=== PATIENT | male | born 1980 | race Caucasian/White ===

== ENCOUNTER → 2018-05-26 | Outpatient (CLI) | payer OTHER ==
--- NOTE | 2018-05-26 15:16 | US ---
EXAMINATION TYPE: US kidneys/renal and bladder DATE OF EXAM: 05/26/2018 COMPARISON: CT 2013. CLINICAL HISTORY: N20.0 Kidney Stones. Pt states frequent urination with pelvic and left flank pain EXAM MEASUREMENTS: Right Kidney: 11.8 x 5.8 x 6.1 cm Left Kidney: 11.9 x 6.0 x 6.2 cm Right Kidney: Appeared wnl Left Kidney: Appeared wnl Bladder: wnl Bilateral Jets seen: Yes There is no evidence for hydronephrosis at this point in time. No nephrolithiasis is seen. No rustam s are identified on images saved. The urinary bladder is anechoic. Bilateral ureteral jets are seen . IMPRESSION: Unremarkable study.
== END | disposition home or self-care (01) ==
LOC: RADUSWWP 14:45
PROVIDERS: ATTEND Family Medicine
DX: N20.0 Calculus of kidney (principal)
CPT/HCPCS: 76770

== ENCOUNTER → 2018-08-14 | Outpatient (CLI) | payer OTHER ==
--- NOTE | 2018-08-14 20:58 | CT ---
EXAMINATION TYPE: CT abdomen pelvis w con DATE OF EXAM: 08/14/2018 COMPARISON: 04/04/2014 HISTORY: Nausea and pain for [address] DLP: 3684 mGycm Automated exposure control for dose reduction was used. CONTRAST: CT scan of the abdomen pelvis is performed with IV Contrast, patient injected with 100 mL of Isovue 3 00. FINDINGS- LUNG BASES- No significant abnormality is appreciated. LIVER/GB- No gross abnormality is appreciated. PANCREAS- No gross abnormality is seen. SPLEEN- No gross abnormality is seen. ADRENALS- No gross abnormality is seen. KIDNEYS/BLADDER-there is a 2 mm lower pole right renal calculus with no evidence of hydronephrosis.. BOWEL-bowel gas pattern nonspecific.. Normal appendix. Mild diverticulosis seen. LYMPH NODES- No greater than 1cm abdominal or pelvic lymph nodes areappreciated. OSSEOUS STRUCTURES-mild hypertrophic change of the spine.. OTHER- tiny periumbilical hernia noted. Aorta of normal caliber. No evidence of aneurysm. No free fl uid or free air. Fat-containing inguinal hernias incidentally. IMPRESSION- 1. Nonobstructing 2 mm right renal calculus.
== END | disposition home or self-care (01) ==
LOC: RADCTMAIN 14:24
PROVIDERS: ATTEND Family Medicine
DX: N20.0 Calculus of kidney (principal)
CPT/HCPCS: 74177; Q9967

== ENCOUNTER 2018-09-21 09:16 | Day surgery (SDC) | payer OTHER ==
[2018-09-17 09:13] VITALS: BMI 41.2
[~2018-09-21 09:16] MED LIST: LACTATED RINGERS 1,000 ML IV SCH
[2018-09-21 10:43] VITALS: RESP 16; TEMP 97.4
[2018-09-21] MEDS ORDERED: LIDOCAINE 1% 20 ML VIAL (10MG/ML) FOR IV START INTRADERMA ONE (10:43)
[2018-09-21] MEDS ORDERED: GLYCOPYRROLATE 0.2 MG/ML 2 ML VIAL ONE (12:11)
[2018-09-21] MEDS ORDERED: LIDOCAINE 1% INJ 10MG/ML (20 ML MDV) ONE (12:11)
[2018-09-21] MEDS ORDERED: PROPOFOL 10 MG/ML 20 ML VIAL IV ONE (12:11)
--- NOTE | 2018-09-21 12:42 | P.PCN ---
Date of Procedure: 09/21/18 Description of Procedure: BRIEF HISTORY: Patient is a 37-year-old, pleasant, male patient who was initially seen in the outpatient setting for complaints of nausea, retching and vomiting. The patient has been tried on H2 antagonist therapy, PPI therapy and antiemetics with only animal improvement in his symptoms. PROCEDURE PERFORMED: Esophagogastroduodenoscopy with biopsy. PREOPERATIVE DIAGNOSIS: Nausea and vomiting. ESTIMATED BLOOD LOSS: Minimal. IV sedation per anesthesia. PROCEDURE: After informed consent was obtained, the patient was brought into the endoscopy unit. IV sedation was administered by Anesthesia under continuous monitoring. Initially the Olympus GIF-190 video endoscope was inserted into the mouth. Esophagus intubated without any difficulty. It was gradually advanced into the stomach and duodenum and carefully examined. The bulb and the second part of the duodenum appeared normal. The scope at this time was withdrawn to the stomach, adequately insufflated with air, and upon careful examination, mucosa of the antrum, body, cardia and the fundus appeared normal. The scope was then withdrawn into the esophagus. The GE junction was located at 39 cm from the incisors. The esophagus appeared normal. There were no erosions or ulcerations seen and the patient tolerated the procedure well. IMPRESSION: 1. Mild gastritis antrum and body, biopsied. 2. Duodenal biopsies. RECOMMENDATIONS: The findings of this examination were discussed with the patient and his mother. Await pathology from biopsies. Recommend follow-up in the GI clinic as previously scheduled. Further recommendations pending findings of pathology.
[2018-09-21 12:58] VITALS: BP 120/75; PULSE 61
== END 2018-09-21 13:19 | disposition home or self-care (01) ==
LOC: ORWHC2ENDO 09:16
PROVIDERS: ATTEND Internal Medicine
DX: K29.50 Unspecified chronic gastritis without bleeding (principal); Z79.899 Other long term (current) drug therapy; K21.9 Gastro-esophageal reflux disease without esophagitis
CPT/HCPCS: 88305; 43239; J2001; J2704

== ENCOUNTER 2018-10-18 07:24 | Emergency (ER) | payer OTHER ==
[2018-10-18 07:30] VITALS: RESP 18
[2018-10-18] MEDS ORDERED: SODIUM CHLORIDE 0.9% 1,000 ML IV STA ×2 (07:37)
[2018-10-18] MEDS ORDERED: KETOROLAC 30 MG/ML 1 ML VIAL IVP STA (07:38)
--- NOTE | 2018-10-18 07:52 | ED ---
Abdominal Pain HPI - General Chief Complaint: Abdominal Pain Stated Complaint: LRQ PAIN Time Seen by Provider: 10/18/18 07:37 Source: patient, RN notes reviewed Mode of arrival: ambulatory - History of Present Illness Initial Comments: This is a 37-year-old male with a benign history other than about a three-month history of daily nausea with dry heaves and also a history of a kidney stone was found on a CAT scan incidentally who is here today with complaints of severe right-sided flank pain. He states he had severe pain about 8/10 that started this morning he get worse after moving his right side while he was in bed. He has had some dry heaves associated with this he denies any fevers chills sweats dysuria hematuria change in bowel habits. No trauma. No abdominal surgeries. He does state that he is in the process of being worked up for the nausea and dry heaves by Dr. Alva. Additionally states her last couple ones he's been waking up at 5 AM the morning with the need to urinate which is new for him he's never had problems like this no diagnosed issues of prostatism. No other modifying factors at this time he states the pain is currently about 2/10. MD Complaint: flank pain - Related Data Home Medications Medication Instructions Recorded Confirmed Cetirizine HCl [Zyrtec] 10 mg PO BID 10/18/18 10/18/18 Omeprazole 40 mg PO DAILY 10/18/18 10/18/18 Ondansetron [Zofran ODT] 4 mg SL Q8H PRN 10/18/18 10/18/18 Ranitidine HCl [Zantac] 150 mg PO BID 10/18/18 10/18/18 Previous Rx's Medication Instructions Recorded Ketorolac [Toradol] 10 mg PO Q6HR #20 tab 10/18/18 Tamsulosin [Flomax] 0.4 mg PO DAILY #7 cap 10/18/18 Allergies Allergy/AdvReac Type Severity Reaction Status Date / Time No Known Allergies Allergy Verified 10/18/18 07:46 Review of Systems ROS Statement: Those systems with pertinent positive or pertinent negative responses have been documented in the HPI. ROS Other: All systems not noted in ROS Statement are negative. Past Medical History Past Medical History: Sleep Apnea/CPAP/BIPAP Additional Past Medical History / Comment(s): nausea, "dry heaves" History of Any Multi-Drug Resistant Organisms: None Reported Past Surgical History: Orthopedic Surgery Additional Past Surgical History / Comment(s): left wrist sx with screw, now removed Past Anesthesia/Blood Transfusion Reactions: No Reported Reaction Past Psychological History: No Psychological Hx Reported Smoking Status: Never smoker Past Alcohol Use History: Occasional Past Drug Use History: None Reported General Exam - General Exam Comments Initial Comments: This is a well-developed well-nourished awake alert oriented 3 male General appearance: alert, in no apparent distress Head exam: Present: atraumatic, normocephalic, normal inspection Eye exam: Present: normal appearance, PERRL, EOMI. Absent: scleral icterus, conjunctival injection, periorbital swelling ENT exam: Present: normal exam, mucous membranes moist Neck exam: Present: normal inspection. Absent: tenderness, meningismus, lymphadenopathy Respiratory exam: Present: normal lung sounds bilaterally. Absent: respiratory distress, wheezes, rales, rhonchi, stridor Cardiovascular Exam: Present: regular rate, normal rhythm, normal heart sounds. Absent: systolic murmur, diastolic murmur, rubs, gallop, clicks GI/Abdominal exam: Present: soft, normal bowel sounds. Absent: distended, tenderness, guarding, rebound, rigid Rectal exam: Present: deferred exam: Present: normal inspection, circumcision Extremities exam: Present: normal inspection, full ROM, normal capillary refill. Absent: tenderness, pedal edema, joint swelling, calf tenderness Back exam: Present: normal inspection Neurological exam: Present: alert, oriented X3, CN II-XII intact Psychiatric exam: Present: normal affect, normal mood Skin exam: Present: warm, dry, intact, normal color. Absent: rash Course Vital Signs 10/18/18 10/18/18 07:26 09:35 Temperature 98.4 F 97.8 F Pulse Rate 72 68 Respiratory 18 18 Rate Blood Pressure 128/81 127/94 O2 Sat by Pulse 98 97 Oximetry Medical Decision Making - Medical Decision Making The patient's been almost pain-free and later pain-free during his visit here. He does demonstrate evidence of a marked amount of red cells in the urine is HERE report shows evidence of a 2 mm stone right kidney. The clinical presentation at this time is consistent with renal colic and a ureteral stone. The patient will be placed on appropriate treatment for [facility]. Is unclear whether this represents the cause of his underlying persistent daily nausea or not. - Lab Data Result diagrams: 10/18/18 08:09 10/18/18 08:09 Lab Results 10/18/18 10/18/18 10/18/18 Range/Units 08:09 08:09 09:00 WBC 6.4 (3.8-10.6) k/uL RBC 4.95 (4.30-5.90) m/uL Hgb 14.4 (13.0-17.5) gm/dL Hct 43.1 (39.0-53.0) % MCV 87.3 (80.0-100.0) fL MCH 29.1 (25.0-35.0) pg MCHC 33.4 (31.0-37.0) g/dL RDW 16.2 H (11.5-15.5) % Plt Count 232 (150-450) k/uL Neutrophils % 66 % Lymphocytes % 25 % Monocytes % 5 % Eosinophils % 3 % Basophils % 1 % Neutrophils # 4.2 (1.3-7.7) k/uL Lymphocytes # 1.6 (1.0-4.8) k/uL Monocytes # 0.3 (0-1.0) k/uL Eosinophils # 0.2 (0-0.7) k/uL Basophils # 0.0 (0-0.2) k/uL Anisocytosis Slight Sodium 142 (137-145) mmol/L Potassium 4.3 (3.5-5.1) mmol/L Chloride 108 H (98-107) mmol/L Carbon Dioxide 27 (22-30) mmol/L Anion Gap 7 mmol/L BUN 18 (9-20) mg/dL Creatinine 1.16 (0.66-1.25) mg/dL Est GFR (CKD-EPI)AfAm >90 (>60 ml/min/1.73 sqM) Est GFR (CKD-EPI)NonAf 81 (>60 ml/min/1.73 sqM) Glucose 116 H (74-99) mg/dL Calcium 9.3 (8.4-10.2) mg/dL Total Bilirubin 0.5 (0.2-1.3) mg/dL AST 31 (17-59) U/L ALT 34 (21-72) U/L Alkaline Phosphatase 62 (38-126) U/L Total Protein 7.1 (6.3-8.2) g/dL Albumin 4.4 (3.5-5.0) g/dL Amylase 62 (30-110) U/L Lipase 48 (23-300) U/L Urine Color Yellow Urine Appearance Clear (Clear) Urine pH 6.0 (5.0-8.0) Ur Specific [place] 1.018 (1.001-1.035) Urine Protein Trace H (Negative) Urine Glucose (UA) Negative (Negative) Urine Ketones Negative (Negative) Urine Blood Moderate H (Negative) Urine Nitrite Negative (Negative) Urine Bilirubin Negative (Negative) Urine Urobilinogen <2.0 (<2.0) mg/dL Ur Leukocyte Esterase Negative (Negative) Urine RBC >182 H (0-5) /hpf Urine WBC 2 (0-5) /hpf Urine Mucus Rare H (None) /hpf - Radiology Data Radiology results: report reviewed (I did review the imaging and report no acute findings), image reviewed Disposition Clinical Impression: Renal colic on right side, Hematuria, Ureterolithiasis Disposition: HOME SELF-CARE Condition: Good Instructions (If sedation given, give patient instructions): Kidney Stones (ED), Flank Pain (ED), How to Strain Your Urine (ED), Renal Colic (ED) Prescriptions: Tamsulosin [Flomax] 0.4 mg PO DAILY #7 cap Ketorolac [Toradol] 10 mg PO Q6HR #20 tab Is patient prescribed a controlled substance at d/c from ED?: No Referrals: Roddy Ragsdale MD [Primary Care Provider] - 1-2 days Meng Sue MD [STAFF PHYSICIAN] - 1-2 days
[2018-10-18 08:27] LABS: Anisocytosis Slight; Basophils % (A) 1 %; Eosinophils # (A) 0.2 k/uL (0-0.7); Eosinophils % (A) 3 %; HCT 43.1 % (39.0-53.0); HGB 14.4 gm/dL (13.0-17.5); Lymphocytes # (A) 1.6 k/uL (1.0-4.8); Lymphocytes % (A) 25 %; MCH 29.1 pg (25.0-35.0); MCHC 33.4 g/dL (31.0-37.0); MCV 87.3 fL (80.0-100.0); Mean Platelet Volume 7.9; Monocytes # (A) 0.3 k/uL (0-1.0); Monocytes % (A) 5 %; Neutrophils # (A) 4.2 k/uL (1.3-7.7); Neutrophils % (A) 66 %; Platelet Count 232 k/uL (150-450); RBC 4.95 m/uL (4.30-5.90); RDW 16.2 % (11.5-15.5); WBC 6.4 k/uL (3.8-10.6)
[2018-10-18 08:36] LABS: ALT 34 U/L (21-72); AST 31 U/L (17-59); African American GFR (CKD) >90 (>60 ml/min/1.73 sqM); Albumin 4.4 g/dL (3.5-5.0); Alkaline Phosphatase 62 U/L (38-126); Amylase 62 U/L (30-110); Anion Gap 7 mmol/L; Blood Urea Nitrogen 18 mg/dL (9-20); Calcium 9.3 mg/dL (8.4-10.2); Carbon Dioxide 27 mmol/L (22-30); Chloride 108 mmol/L (98-107); Glucose 116 mg/dL (74-99); Lipase 48 U/L (23-300); Potassium 4.3 mmol/L (3.5-5.1); Sodium 142 mmol/L (137-145); Total Bilirubin 0.5 mg/dL (0.2-1.3); Total Protein 7.1 g/dL (6.3-8.2)
--- NOTE | 2018-10-18 08:48 | XR ---
EXAMINATION TYPE: XR KUB , 2 VIEWS DATE OF EXAM ORDERED: 10/18/2018 HISTORY: Abdominal pain, nausea and vomiting. COMPARISON: None. FINDINGS: The lung bases are clear. Within the abdomen, the abdominal gas pattern is normal. There is no evidence of obstruction or free air. No unusual calcifications are identified. IMPRESSION: NO ACUTE INTRA-ABDOMINAL ABNORMALITY.
[2018-10-18 09:21] LABS: Appearance,Urine Clear (Clear); Bilirubin,Urine Negative (Negative); Blood,Urine Moderate (Negative); Color,Urine Yellow; Glucose,Urine (UA) Negative (Negative); Ketones,Urine Negative (Negative); Leukocyte Esterase,Urine Negative (Negative); Mucus,Urine Rare /hpf; Nitrite,Urine Negative (Negative); Protein,Urine Trace (Negative); RBC,Urine >182 /hpf (0-5); Specific Gravity,Urine 1.018 (1.001-1.035); Urobilinogen,Urine <2.0 mg/dL (<2.0); WBC,Urine 2 /hpf (0-5)
[2018-10-18 09:37] VITALS: BP 127/94; PULSE 68; TEMP 97.8
[2018-10-18] MEDS ORDERED: TAMSULOSIN 0.4 MG CAP.ER.24H PO STA (09:44)
== END 2018-10-18 09:56 | disposition home or self-care (01) ==
LOC: EC 07:24
DX: N20.2 Calculus of kidney with calculus of ureter (principal); G47.30 Sleep apnea, unspecified; Z99.89 Dependence on other enabling machines and devices; Z79.899 Other long term (current) drug therapy; Z53.29 Procedure and treatment not carried out because of patient's decision for other reasons
CPT/HCPCS: 36415; 74018; 80053; 81001; 82150; 83690; 85025; 96360; 96361; 99284

== ENCOUNTER → 2018-11-18 | Outpatient (CLI) | payer OTHER ==
--- NOTE | 2018-11-18 16:49 | CONS ---
CONSULTATION DATE OF SERVICE: 11/18/2018 This patient is a 37-year-old gentleman who has been re-evaluated in [facility] for obstructive sleep apnea-hypopnea syndrome. HISTORY OF PRESENT ILLNESS/SLEEP-WAKE EVALUATION: This patient has a history of obstructive sleep apnea for about 15 years. Since that time he has been on treatment with CPAP every night for the whole night, and with the machine he sleeps well, without awakenings or feeling sleepiness during the day. Recently his CPAP unit was broken, and without the machine he has problems with sleep and develops sleepiness during the day. His sleep schedule is from 10:30 or 11 p.m. until 6:30 or 7 a.m., basically 7 days a week. No problems with falling asleep. No TV in bedroom. He usually sleeps his back, wakes up from sleep once with nocturia. No history of hypnagogic hallucinations, sleep paralysis or cataplexy. [place] Sleepiness Scale today is 6. PAST MEDICAL HISTORY: Positive for episodes of nausea and heaving (dry heaves). PAST SURGICAL HISTORY: Left wrist surgery secondary to football injury. MEDICATIONS: Zofran. SOCIAL HISTORY: Negative for smoking. Alcohol consumption occasional. FAMILY HISTORY: Sinus problems, diabetes, thyroid problems, snoring. REVIEW OF SYSTEMS: Multiple awakenings from sleep. PHYSICAL EXAMINATION: GENERAL: A pleasant gentleman without distress. VITAL SIGNS: BP 138/77, HR 85, RR 18, height 6 feet 3 inches, weight 338.4, body mass index 42.2, temperature 97.8. Oxygen saturation at room air 95%. HEENT: PERRLA, EOMI. Evaluation of oropharynx showed tongue protrudes midline. Extremely low position of soft palate. Mallampati IV. NECK: Supple. No JVD. Thyroid is not palpable. Wide neck, measuring 19 inches in circumference. LUNGS: Clear to percussion and to auscultation. Good air exchange. No wheezing or rhonchi. HEART: S1, S2 regular. No murmurs, gallops or rubs. ABDOMEN: Slightly obese. EXTREMITIES: No clubbing or cyanosis. RN CARDIOLOGY: Awake, alert, and oriented X3. Cranial nerves 2 to 7 intact. There is no fasciculation or atrophy. noted. No focal deficits observed. IMPRESSION: 1. Loud snoring, multiple awakenings from sleep, extremely low position of soft palate, wide neck, history of obstructive sleep apnea for 15 years with usage of CPAP until recently when CPAP was broken; obstructive sleep apnea-hypopnea syndrome. 2. Obesity; body mass index of 42.2. 3. Recent episodes of nausea and heaving. 4. Status post left wrist surgery secondary to sport trauma. PLAN: 1. Home sleep apnea test for re-evaluation of patient's breathing at the present time. 2. Prescription to replace CPAP unit with AutoPAP with the range of pressure from 7 to 15 cm of water. 3. Losing weight. 4. Sleep hygiene with regular time in bed for at least 8 hours. 5. No driving if feeling any sleepiness. Thank you very much for referring this patient for evaluation. Sincerely, Nba Aguilar MD, PhD, FAASM Diplomat of [place] [employer] of Medical Specialties [place] Board of Internal Medicine Medical Staff Credentialing Coordinator of [facility] [place] MMODL / MACKN: [id number] /
== END | disposition home or self-care (01) ==
LOC: SLEEP 13:06
PROVIDERS: ATTEND Internal Medicine
DX: G47.33 Obstructive sleep apnea (adult) (pediatric) (principal); E66.9 Obesity, unspecified; Z68.41 Body mass index [BMI] 40.0-44.9, adult; Z87.828 Personal history of other (healed) physical injury and trauma; Z99.89 Dependence on other enabling machines and devices; Z98.890 Other specified postprocedural states
CPT/HCPCS: 99211

== ENCOUNTER → 2019-03-04 | Outpatient (CLI) | payer OTHER ==
--- NOTE | 2019-03-04 16:43 | PN ---
PROGRESS NOTE DATE OF SERVICE: 03/04/2019 This 38-year-old gentleman has been followed in Sleep Center for treatment of obstructive sleep apnea-hypopnea syndrome. Recently the patient received a new CPAP unit and started to use it. He is able to use it every night without significant problems, except he feels that when he starts to use the machine, pressure is not enough for him. [place] Sleepiness Scale today is 11. I checked his CPAP unit. Range of the pressure is from 7 to 15 cm of water. Average pressure 11.4 cm of water. Usage is every night, and 100% of nights for more than 4 hours, with average usage 7.7 hours per night. Leak is only 4 L/minute, which is perfect. Apnea-hypopnea index is only 0.7, which is absolutely perfect. MEDICATIONS: None. PHYSICAL EXAMINATION: GENERAL: A pleasant patient in no distress. VITAL SIGNS: BP 150/83, HR 90, RR 16, weight 340 pounds. Temperature 97.8, oxygen saturation at room air 94%. HEENT: PERRLA, EOMI. Evaluation of oropharynx showed tongue protrudes midline. Extremely low position of soft palate. Mallampati IV. NECK: Supple. No JVD. Thyroid is not palpable. LUNGS: Clear to percussion and to auscultation. Good air exchange. No wheezing or rhonchi. HEART: S1, S2 regular. No murmurs, gallops or rubs. ABDOMEN: Slightly obese. EXTREMITIES: No clubbing or cyanosis. TRUCK [employer]IVER'S OFFSIDER: Awake, alert, and oriented X3. Cranial nerves 2 to 7 intact. There is no fasciculation or atrophy. noted. No focal deficits observed. IMPRESSION: 1. Obstructive sleep apnea-hypopnea syndrome. The patient demonstrated 100% compliance with treatment, benefitting from treatment. 2. Obesity. 3. Status post left wrist surgery secondary to trauma years ago. 4. Obesity. PLAN: 1. I will change the regimen of pressure in the machine up from 9 to 15 cm of water. 2. Patient will continue to use CPAP equipment every night for the whole night. 3. Losing weight. 4. Sleep hygiene with regular time in bed for at least 8 hours. 5. No driving if feeling any sleepiness. Thank you very much for allowing me to participate in the management of your patient. Sincerely, Nba Aguilar MD, PhD, FAASM Diplomat of [place] [employer] [place] [employer] Special Agent of [facility] [place] MMODL / MACKN: [id number] /
== END | disposition home or self-care (01) ==
LOC: SLEEP 13:57
PROVIDERS: ATTEND Internal Medicine
DX: G47.33 Obstructive sleep apnea (adult) (pediatric) (principal); E66.9 Obesity, unspecified; Z98.890 Other specified postprocedural states; Z87.828 Personal history of other (healed) physical injury and trauma; Z99.89 Dependence on other enabling machines and devices

== ENCOUNTER 2020-08-10 02:17 | Emergency (ER) | payer OTHER ==
[2020-08-10] MEDS ORDERED: ACETAMINOPHEN TAB 500 MG TAB PO STA (02:32)
[2020-08-10] MEDS ORDERED: DEXAMETHASONE SOD PHOSPHATE 10 MG/ML 1 ML VIAL IM STA (02:32)
[2020-08-10] MEDS ORDERED: IBUPROFEN 800 MG TAB PO STA (02:32)
--- NOTE | 2020-08-10 02:54 | ED ---
SOB HPI - General Chief Complaint: Upper Respiratory Infection Stated Complaint: SOB, covid-like symptoms Time Seen by Provider: 08/10/20 02:31 Source: patient, RN notes reviewed, old records reviewed Mode of arrival: ambulatory Limitations: no limitations - History of Present Illness Initial Comments: This is a 39-year-old male DF for evaluation patient is feeling feverish sore severe cough and congestion, sore throat concern for coronavirus. Patient has no significant recent travel history or known positive coronavirus contacts. No significant current shortness of breath. Patient does admit to fevers MD Complaint: shortness of breath, cough -: days(s) Radiation: other (None) Severity: moderate Severity scale (1-10): 4 Quality: dull, aching, throbbing Consistency: intermittent Improves With: nothing Worsens With: nothing Known History Of: other (none) Context: recent URI, recent illness Associated Symptoms: fever, cough Treatments Prior to Arrival: none - Related Data Home Medications Medication Instructions Recorded Confirmed Cetirizine HCl [Zyrtec] 10 mg PO BID 10/18/18 10/18/18 Omeprazole 40 mg PO DAILY 10/18/18 10/18/18 Ondansetron [Zofran ODT] 4 mg SL Q8H PRN 10/18/18 10/18/18 Ranitidine HCl [Zantac] 150 mg PO BID 10/18/18 10/18/18 Previous Rx's Medication Instructions Recorded Ketorolac [Toradol] 10 mg PO Q6HR #20 tab 10/18/18 Tamsulosin [Flomax] 0.4 mg PO DAILY #7 cap 10/18/18 Allergies Allergy/AdvReac Type Severity Reaction Status Date / Time No Known Allergies Allergy Verified 08/10/20 02:22 Review of Systems ROS Statement: Those systems with pertinent positive or pertinent negative responses have been documented in the HPI. ROS Other: All systems not noted in ROS Statement are negative. Past Medical History Past Medical History: Sleep Apnea/CPAP/BIPAP Additional Past Medical History / Comment(s): nausea, "dry heaves" History of Any Multi-Drug Resistant Organisms: None Reported Past Surgical History: Orthopedic Surgery Additional Past Surgical History / Comment(s): left wrist sx with screw, now removed Past Anesthesia/Blood Transfusion Reactions: No Reported Reaction Past Psychological History: No Psychological Hx Reported Past Alcohol Use History: Occasional Past Drug Use History: None Reported General Exam Limitations: no limitations General appearance: alert, in no apparent distress Head exam: Present: atraumatic, normocephalic, normal inspection Eye exam: Present: normal appearance, PERRL, EOMI. Absent: scleral icterus, conjunctival injection, periorbital swelling ENT exam: Present: normal exam, mucous membranes moist Neck exam: Present: normal inspection. Absent: tenderness, meningismus, lymphadenopathy Respiratory exam: Present: normal lung sounds bilaterally. Absent: respiratory distress, wheezes, rales, rhonchi, stridor Cardiovascular Exam: Present: regular rate, normal rhythm, normal heart sounds. Absent: systolic murmur, diastolic murmur, rubs, gallop, clicks GI/Abdominal exam: Present: soft, normal bowel sounds. Absent: distended, tenderness, guarding, rebound, rigid Extremities exam: Present: normal inspection, full ROM, normal capillary refill. Absent: tenderness, pedal edema, joint swelling, calf tenderness Back exam: Present: normal inspection Neurological exam: Present: alert, oriented X3, CN II-XII intact Psychiatric exam: Present: normal affect, normal mood Skin exam: Present: warm, dry, intact, normal color. Absent: rash Course Vital Signs 08/10/20 08/10/20 08/10/20 02:19 02:36 04:10 Temperature 98 F 97.1 F L Pulse Rate 93 79 Respiratory 16 16 19 Rate Blood Pressure 138/85 142/98 O2 Sat by Pulse 99 96 Oximetry - Reevaluation(s) Reevaluation #1: Medical record is reviewed Patient symptoms are improved here in the emergency department Patient informed of results and questions have been answered Patient feels good for discharge home Medical Decision Making - Medical Decision Making 39 male DF for evaluation patient Dese for evaluation of possible coronavirus. Patient's negative here in the emergency department for coronavirus chest x-rays negative patient can be discharged home - Lab Data Lab Results 08/10/20 08/10/20 Range/Units 02:29 04:09 Coronavirus (PCR) Not Detected Not Detected (Not Detectd) - Radiology Data Radiology results: report reviewed (Chest x-rays negative for acute disease), image reviewed Disposition Clinical Impression: Acute upper respiratory infection Disposition: HOME SELF-CARE Condition: Good Instructions (If sedation given, give patient instructions): Upper Respiratory Infection (ED) Is patient prescribed a controlled substance at d/c from ED?: No Referrals: Roddy Ragsdale MD [Primary Care Provider] - 1-2 days
--- NOTE | 2020-08-10 03:05 | XR ---
EXAM: XR Chest, 1 View CLINICAL HISTORY: ITS.REASON XR Reason: cough TECHNIQUE: Frontal view of the chest. COMPARISON: No relevant prior studies available. FINDINGS: Lungs: No consolidation or mass. Pleural space: No acute findings Heart: No cardiomegaly. Bones/joints: No acute findings. IMPRESSION: No acute cardiopulmonary process.
[2020-08-10 04:12] VITALS: BP 142/98; PULSE 79; RESP 19; TEMP 97.1
== END 2020-08-10 04:10 | disposition home or self-care (01) ==
LOC: EC 02:17
DX: J06.9 Acute upper respiratory infection, unspecified (principal); Z20.822 Contact with and (suspected) exposure to COVID-19; G47.30 Sleep apnea, unspecified; Z79.899 Other long term (current) drug therapy; Z99.89 Dependence on other enabling machines and devices
CPT/HCPCS: 87635; 71045; 99285; 96372; U0003; U0005; J1100

== ENCOUNTER 2021-02-23 16:03 | Emergency (ER) | payer OTHER ==
[2021-02-23 16:40] VITALS: RESP 18
--- NOTE | 2021-02-23 17:09 | ED ---
General Adult HPI - General Chief complaint: Shortness of Breath Stated complaint: covid+/ERMELINDA Time Seen by Provider: 02/23/21 16:50 Source: patient, RN notes reviewed, old records reviewed Mode of arrival: ambulatory Limitations: no limitations - History of Present Illness Initial comments: Well-appearing obese white male presents to the emergency room with complaints of 2 days of shortness of breath with exertion. Patient states that he seen his primary care doctor yesterday and was prescribed prednisone and Zithromax and albuterol. He states that he was diagnosed with Covid on February 12 and received monoclonal antibodies on February 15. He states that he was feeling better until Friday when he became short of breath again. States that he was vaccinated against Covid in September. He denies any fevers. Does state he has nausea but no vomiting. He has a medical history of sleep apnea. He is a nonsmoker. He has no family history of cardiac disease. -: days(s) (2) Location: chest Radiation: non-radiation Quality: other Consistency: constant (Pressure) Improves with: none Worsens with: none Associated Symptoms: shortness of breath Treatments Prior to Arrival: other (Prednisone and albuterol) - Related Data Home Medications Medication Instructions Recorded Confirmed Albuterol Inhaler [Ventolin Hfa 2 puff INHALATION RT-Q4H PRN 02/23/21 02/23/21 Inhaler] guaiFENesin [Mucinex] 600 mg PO BID PRN 02/23/21 02/23/21 predniSONE [Deltasone] See Taper PO DAILY 02/23/21 02/23/21 Allergies Allergy/AdvReac Type Severity Reaction Status Date / Time No Known Allergies Allergy Verified 02/23/21 18:29 Review of Systems ROS Statement: Those systems with pertinent positive or pertinent negative responses have been documented in the HPI. ROS Other: All systems not noted in ROS Statement are negative. Past Medical History Past Medical History: Sleep Apnea/CPAP/BIPAP Additional Past Medical History / Comment(s): nausea, "dry heaves" History of Any Multi-Drug Resistant Organisms: None Reported Past Surgical History: Orthopedic Surgery Additional Past Surgical History / Comment(s): left wrist sx with screw, now removed Past Anesthesia/Blood Transfusion Reactions: No Reported Reaction Past Psychological History: No Psychological Hx Reported Smoking Status: Never smoker Past Alcohol Use History: Occasional Past Drug Use History: None Reported General Exam Limitations: no limitations General appearance: alert, in no apparent distress Head exam: Present: atraumatic, normocephalic, normal inspection Eye exam: Present: normal appearance, PERRL, EOMI. Absent: scleral icterus, conjunctival injection, periorbital swelling ENT exam: Present: normal exam, normal oropharynx, mucous membranes moist Neck exam: Present: normal inspection, full ROM. Absent: tenderness, meningismus, lymphadenopathy, thyromegaly Respiratory exam: Present: normal lung sounds bilaterally. Absent: respiratory distress, wheezes, rales, rhonchi, stridor Cardiovascular Exam: Present: regular rate, normal rhythm, normal heart sounds. Absent: systolic murmur, diastolic murmur, rubs, gallop, clicks GI/Abdominal exam: Present: soft, normal bowel sounds. Absent: distended, tenderness, guarding, rebound, rigid Extremities exam: Present: normal inspection, full ROM, normal capillary refill. Absent: tenderness, pedal edema, joint swelling, calf tenderness Back exam: Present: normal inspection, full ROM. Absent: tenderness, CVA tenderness (R), CVA tenderness (L), rash noted Neurological exam: Present: alert, oriented X3 Psychiatric exam: Present: normal affect, normal mood Skin exam: Present: warm, dry, intact, normal color. Absent: rash, cyanosis Course Vital Signs 02/23/21 02/23/21 02/23/21 16:37 19:20 21:55 Temperature 97.8 F 97.9 F Pulse Rate 84 81 Respiratory 18 18 18 Rate Blood Pressure 139/72 138/89 O2 Sat by Pulse 96 97 Oximetry EKG Findings - EKG Results: EKG: sinus rhythm (Ventricular rate of 95, MO interval 0.190, QRS 0.100, QTC 0.442; no old EKG to compare) Medical Decision Making - Medical Decision Making White blood cell count 12.4, patient was placed on Zithromax, prednisone and albuterol by his primary care doctor for the cough. Chest x-ray shows no acute cardiopulmonary process. No pleural effusions. Troponin is negative at 0.012 EKG shows normal sinus rhythm with an incomplete right bundle branch block. Blood glucose is 218. Patient is on prednisone for the past 2 days which is likely the cause of her elevated blood glucose. States that is being monitored by his primary care doctor. Patient's d-dimer is negative. He has been afebrile and his lungs are clear to auscultation. This is likely post covid dyspnea. As directed to monitor his pulse ox at home with his pulse oximeter to return to the emergency room with numbers fall below 90% with increasing shortness of breath. He was also directed to return if any new or worsening symptoms including chest pain. Case was discussed with Dr. Last. - Lab Data Result diagrams: 02/23/21 17:58 02/23/21 17:58 Lab Results 02/23/21 02/23/21 02/23/21 Range/Units 17:58 17:58 17:58 WBC 12.4 H (3.8-10.6) k/uL RBC 5.01 (4.30-5.90) m/uL Hgb 15.2 (13.0-17.5) gm/dL Hct 45.5 (39.0-53.0) % MCV 90.8 (80.0-100.0) fL MCH 30.3 (25.0-35.0) pg MCHC 33.3 (31.0-37.0) g/dL RDW 13.3 (11.5-15.5) % Plt Count 303 (150-450) k/uL MPV 8.1 Neutrophils % 83 % Lymphocytes % 12 % Monocytes % 3 % Eosinophils % 1 % Basophils % 0 % Neutrophils # 10.3 H (1.3-7.7) k/uL Lymphocytes # 1.4 (1.0-4.8) k/uL Monocytes # 0.4 (0-1.0) k/uL Eosinophils # 0.1 (0-0.7) k/uL Basophils # 0.0 (0-0.2) k/uL PT 10.6 (9.0-12.0) sec INR 1.0 (<1.2) APTT 23.9 (22.0-30.0) sec D-Dimer (<0.60) mg/L FEU Sodium 136 L (137-145) mmol/L Potassium 4.0 (3.5-5.1) mmol/L Chloride 107 (98-107) mmol/L Carbon Dioxide 20 L (22-30) mmol/L Anion Gap 9 mmol/L BUN 20 (9-20) mg/dL Creatinine 0.98 (0.66-1.25) mg/dL Est GFR (CKD-EPI)AfAm >90 (>60 ml/min/1.73 sqM) Est GFR (CKD-EPI)NonAf >90 (>60 ml/min/1.73 sqM) Glucose 218 H (74-99) mg/dL Calcium 10.0 (8.4-10.2) mg/dL Magnesium 1.9 (1.6-2.3) mg/dL Total Bilirubin 0.4 (0.2-1.3) mg/dL AST 31 (17-59) U/L ALT 47 (4-49) U/L Alkaline Phosphatase 76 (38-126) U/L Troponin I (0.000-0.034) ng/mL Total Protein 7.5 (6.3-8.2) g/dL Albumin 4.5 (3.5-5.0) g/dL 02/23/21 02/23/21 Range/Units 17:58 17:58 WBC (3.8-10.6) k/uL RBC (4.30-5.90) m/uL Hgb (13.0-17.5) gm/dL Hct (39.0-53.0) % MCV (80.0-100.0) fL MCH (25.0-35.0) pg MCHC (31.0-37.0) g/dL RDW (11.5-15.5) % Plt Count (150-450) k/uL MPV Neutrophils % % Lymphocytes % % Monocytes % % Eosinophils % % Basophils % % Neutrophils # (1.3-7.7) k/uL Lymphocytes # (1.0-4.8) k/uL Monocytes # (0-1.0) k/uL Eosinophils # (0-0.7) k/uL Basophils # (0-0.2) k/uL PT (9.0-12.0) sec INR (<1.2) APTT (22.0-30.0) sec D-Dimer 0.22 (<0.60) mg/L FEU Sodium (137-145) mmol/L Potassium (3.5-5.1) mmol/L Chloride (98-107) mmol/L Carbon Dioxide (22-30) mmol/L Anion Gap mmol/L BUN (9-20) mg/dL Creatinine (0.66-1.25) mg/dL Est GFR (CKD-EPI)AfAm (>60 ml/min/1.73 sqM) Est GFR (CKD-EPI)NonAf (>60 ml/min/1.73 sqM) Glucose (74-99) mg/dL Calcium (8.4-10.2) mg/dL Magnesium (1.6-2.3) mg/dL Total Bilirubin (0.2-1.3) mg/dL AST (17-59) U/L ALT (4-49) U/L Alkaline Phosphatase (38-126) U/L Troponin I <0.012 (0.000-0.034) ng/mL Total Protein (6.3-8.2) g/dL Albumin (3.5-5.0) g/dL Disposition Clinical Impression: Shortness of breath Clinical Impression: (Ruled Out): Shortness of breath with exposure to COVID-19 virus Disposition: HOME SELF-CARE Condition: Good Instructions (If sedation given, give patient instructions): Shortness of Breath (ED) Additional Instructions: Continue taking medications prescribed by primary care doctor. Return to the emergency room with any worsening symptoms including chest pain or pulse ox less than 89%. Is patient prescribed a controlled substance at d/c from ED?: No Referrals: Roddy Ragsdale MD [Primary Care Provider] - 1-2 days Time of Disposition: 21:39
[2021-02-23] MEDS ORDERED: KETOROLAC 15 MG/ML 1 ML VIAL IVP STA (17:44)
[2021-02-23 18:14] LABS: Basophils % (A) 0 %; Eosinophils # (A) 0.1 k/uL (0-0.7); Eosinophils % (A) 1 %; HCT 45.5 % (39.0-53.0); HGB 15.2 gm/dL (13.0-17.5); Lymphocytes # (A) 1.4 k/uL (1.0-4.8); Lymphocytes % (A) 12 %; MCH 30.3 pg (25.0-35.0); MCHC 33.3 g/dL (31.0-37.0); MCV 90.8 fL (80.0-100.0); Mean Platelet Volume 8.1; Monocytes # (A) 0.4 k/uL (0-1.0); Monocytes % (A) 3 %; Neutrophils # (A) 10.3 k/uL (1.3-7.7); Neutrophils % (A) 83 %; Platelet Count 303 k/uL (150-450); RBC 5.01 m/uL (4.30-5.90); RDW 13.3 % (11.5-15.5); WBC 12.4 k/uL (3.8-10.6)
[2021-02-23 18:23] LABS: ALT 47 U/L (4-49); AST 31 U/L (17-59); African American GFR (CKD) >90 (>60 ml/min/1.73 sqM); Albumin 4.5 g/dL (3.5-5.0); Alkaline Phosphatase 76 U/L (38-126); Anion Gap 9 mmol/L; Blood Urea Nitrogen 20 mg/dL (9-20); Carbon Dioxide 20 mmol/L (22-30); Chloride 107 mmol/L (98-107); Glucose 218 mg/dL (74-99); Magnesium 1.9 mg/dL (1.6-2.3); Non-African American GFR(CKD) >90 (>60 ml/min/1.73 sqM); Sodium 136 mmol/L (137-145); Total Bilirubin 0.4 mg/dL (0.2-1.3); Total Protein 7.5 g/dL (6.3-8.2)
[2021-02-23 18:27] LABS: Partial Thromboplastin Time 23.9 sec (22.0-30.0); Prothrombin Time 10.6 sec (9.0-12.0)
--- NOTE | 2021-02-23 19:44 | XR ---
EXAMINATION TYPE: XR chest 2V DATE OF EXAM: 02/23/2021 COMPARISON: 08/10/20 HISTORY: Chest pain TECHNIQUE: Frontal and lateral views of the chest are obtained. FINDINGS: There is no focal air space opacity. No evidence for pneumothorax. No pleural effusion. The cardiac silhouette size is within normal limits. The osseous structures are grossly intact. IMPRESSION: 1. No acute cardiopulmonary process.
[2021-02-23] MEDS ORDERED: SODIUM CHLORIDE 0.9% 1,000 ML IV ONE (19:47)
[2021-02-23 21:56] VITALS: BP 138/89; PULSE 81; TEMP 97.9
== END 2021-02-23 21:56 | disposition home or self-care (01) ==
LOC: EC 16:03
DX: R06.02 Shortness of breath (principal); Z86.16 Personal history of COVID-19; R11.0 Nausea
CPT/HCPCS: 36415; 93005; 85379; 80053; 83735; 84484; 85025; 85610; 85730; 71046; 99285; 96374; J1885

== ENCOUNTER → 2021-06-08 | Outpatient (CLI) | payer OTHER ==
--- NOTE | 2021-06-08 09:20 | MR ---
EXAMINATION TYPE: MR shoulder LT wo con DATE OF EXAM: 06/08/2021 COMPARISON: None. HISTORY: Lt shoulder pain x7 months TECHNIQUE: Multiplanar, multisequence imaging of the left shoulder is performed without contrast. FINDINGS: Rotator Cuff: Some increased signal in the distal supraspinatus and infraspinatus tendons. Tiny parti al articular surface tear of the anterior fibers measuring 4 mm AP diameter sagittal image 8 of the d istal supraspinatus tendon. No retracted tearing is evident. Intact subscapularis tendon. Rotator cuf f muscle bulk preserved. Acromioclavicular Joint: Moderate narrowing and mild capsular hypertrophy underlying fat plane is noelle ntained. There is however detected downsloping acromion with loss of underlying fat plane particularl y anterior aspect sagittal image 10. Glenohumeral Joint: Small joint effusion. No significant spurring. Labrum: Focal increased signal coronal image 13 superior labrum suspicious for tearing. Biceps Tendon: The long head of biceps is in normal location within bicipital groove. Bone marrow signal: No focal abnormal marrow signal is appreciated. Other: No additional significant abnormality is appreciated. IMPRESSION: 1. Tendinosis of the distal supraspinatus and infraspinatus tendons with more prominent findings and partial tearing of the supraspinatus tendon noted. 2. Type II downsloping acromion with suggestion of underlying impingement, correlate clinically. 3. Abnormal signal superior labrum consistent with tear.
== END | disposition home or self-care (01) ==
LOC: RADMRIMAIN 06:35
PROVIDERS: ATTEND Orthopaedic Surgery Sports Medicine
DX: S46.012A Strain of muscle(s) and tendon(s) of the rotator cuff of left shoulder, initial encounter (principal); M75.41 Impingement syndrome of right shoulder; M77.8 Other enthesopathies, not elsewhere classified; X58.XXXA Exposure to other specified factors, initial encounter

== ENCOUNTER 2021-06-15 07:48 | Day surgery (SDC) | payer OTHER ==
[2021-06-13 12:11] VITALS: BMI 43.7
[~2021-06-15 07:48] MED LIST changes: +DEXAMETHASONE SOD PHOSPHATE 4 MG/ML 1 ML VIAL IV ONE; +HYDROmorphone 0.5 MG/0.5 ML SYRINGE IVP PRN; +ONDANSETRON 4 MG/2 ML VIAL IVP ONE; +ceFAZolin 3 GM in SODIUM CHLORIDE 0.9% 100 ML IVPB PRN
[2021-06-15] MEDS ORDERED: MIDAZOLAM 2 MG/2 ML VIAL IVP ONE ×2 (08:35→08:40)
--- NOTE | 2021-06-15 09:09 | P.ANPRN ---
Procedure Note - Anesthesia - Nerve Block Performed Right Adductor Canal Single Time Out Performed: Yes Date of Procedure: 06/15/21 Procedure Start Time: 08:35 Procedure Stop Time: 08:45 Location of Patient: PreOp Indication: Acute Post-Operative Pain, Requested by Surgeon Sedation Type: Sedate with meaningful contact maintained Preparation: Sterile Prep, Sterile Dressing Position: Supine Catheter: None Needle Types: Pajunk Needle Gauge: 20 Ultrasound used to visualize needle placement: Yes Ultrasound used to observe medication spread: Yes Injectate: 0.5% Ropivacaine (see comment for volume) (20 ml + decadron 4 mg) Blood Aspirated: No Pain Paresthesia on Injection Noted: No Resistance on Injection: Normal Image Stored and Saved: Yes Events: Uneventful and Well Tolerated Right Popliteal Single Time Out Performed: Yes Date of Procedure: 06/15/21 Procedure Start Time: 08:46 Procedure Stop Time: 08:56 Location of Patient: PreOp Indication: Acute Post-Operative Pain, Requested by Surgeon Sedation Type: Sedate with meaningful contact maintained Preparation: Sterile Prep, Sterile Dressing Position: Left Lateral Catheter: None Needle Types: Pajunk Needle Gauge: 20 Ultrasound used to visualize needle placement: Yes Ultrasound used to observe medication spread: Yes Injectate: 0.5% Ropivacaine (see comment for volume) (20 ml + decadron 4 mg) Blood Aspirated: No Pain Paresthesia on Injection Noted: No Resistance on Injection: Normal Image Stored and Saved: Yes Events: Uneventful and Well Tolerated
[2021-06-15] MEDS ORDERED: ROPIVACAINE 5 MG/ML 30 ML VIAL ONE (09:23)
[2021-06-15] MEDS ORDERED: SUCCINYLCHOLINE CHLORIDE VIAL 200 MG/10 ML VIAL IV ONE (09:23)
[2021-06-15] MEDS ORDERED: fentaNYL (PF) 50 MCG/ML 2 ML AMP ONE (09:23)
[2021-06-15] MEDS ORDERED: PHENYLEPHRINE-0.9% NACL SYG 1,000 MCG/10 ML SYRINGE ONE (09:23)
[2021-06-15] MEDS ORDERED: MIDAZOLAM 2 MG/2 ML VIAL ONE (09:23)
[2021-06-15] MEDS ORDERED: DEXAMETHASONE SOD PHOSPHATE 4 MG/ML 1 ML VIAL ONE (09:23)
[2021-06-15] MEDS ORDERED: PROPOFOL 10 MG/ML 20 ML VIAL IV ONE (09:23)
[2021-06-15] MEDS ORDERED: LIDOCAINE 1% INJ 10MG/ML (20 ML MDV) ONE (09:23)
[2021-06-15] MEDS ORDERED: LACTATED RINGERS 1,000 ML IV ONE (10:25)
[2021-06-15 10:45] VITALS: RESP 16; TEMP 97.8
--- NOTE | 2021-06-15 10:54 | P.OP ---
Date of Procedure: 06/15/21 Preoperative Diagnosis: 1. Sprain of anterior talofibular and calcaneofibular ligament right ankle 2. Loose body right ankle 3. OCD right talus Postoperative Diagnosis: 1. Same 2. Same 3. Same Procedure(s) Performed: 1. Secondary repair of right lateral ankle ligaments 2. Removal loose body right ankle 3. Debridement of bone right talus Implants: Arthrex internal brace Arthrex knotless fibertak anchors Anesthesia: GETA Surgeon: Roberto Jefferson Estimated Blood Loss (ml): 5 Pathology: none sent Condition: stable Disposition: PACU Operative Findings: Large loose body anterior to the lateral malleolus and adhered to the lateral talar body 4 mm full thickness OCD right talus Description of Procedure: Prior to the patient being brought to the operating room, anesthesia administered a nerve block on the affected extremity, utilizing ultrasonic guidance and mild sedation. Once completed the patient was taken to the operating room and placed on table supine position. Timeout was taken to confirm correct patient identifiers, correct procedure, and correct site of surgery. When all staff in the room were in agreement with the timeout, the patient was induced and placed under general anesthesia. A bump was placed underneath the hip to internally rotate the affected leg. A well-padded tourniquet was placed on the midcalf and then the affected extremity prepped and draped in usual manner. The leg was exsanguinated and the tourniquet inflated to 250 mmHg. Attention was directed over the lateral ankle where a curved incision was made just anterior to the lateral malleolus. The incision was deepened down to the subcutaneous tissue careful to identify, avoid, and retract any neurovascular structures and cauterize any bleeding vessels. Blunt dissection was continued down to level of the lateral ankle joint capsule and ligamentous structures. The soft tissue structures were sharply incised off the anterior surface the lateral malleolus and reflected anteriorly. Immediately there is a large osseous structure that was adhered only with scar tissue to the anterior surface the lateral malleolus and lateral surface of the talar dome. This osseous structure was carefully dissected free from surrounding soft tissue attachments and excised from the surgical field in total. A ronguer was used to remove the cortical bone off the anterior surface the lateral malleolus which would help facilitate tissue re-adhesion upon repair. The ankle joint was then maximally plantarflexed to expose the lateral talar dome. There is a small osteochondral lesion present. A measurement was properly 4 mm. The loose cartilaginous material and then the underlying bone were thoroughly dried with a curette down to bleeding bone. With the ankle at 90 and in neutral inversion and eversion, the capsule was palpated on the lateral surface of the talus anterior to the articular surface. A small stab incision was made in the area of the talar body avoiding both the ankle and subtalar joints and near the junc tion of the neck. A drill hole was then placed utilizing a 3.4 mm drill bit into the talar body avoiding both the ankle and subtalar joints. The hole was then tapped and then the 4.75 mm swivel lock anchor was inserted and impacted and then advanced to proper depth. The same drill bit was used to create the hole for the 3.5 mm anchor in the lateral malleolus. Drill holes for the Arthrex knotless FiberTack anchors were made one inferior and one superior to the 3.4 mm drill hole in the lateral malleolus. With the drill guides for the anchor still in place, the anchors were inserted into the lateral malleolus and impacted to proper depth. The liner inserter and guide were removed and then tension placed on the suture to lock anchors in place. Once both anchors were in place the wound was thoroughly irrigated with antibiotic saline. The suture on the fiber Lenard anchors was then used to capture the distal ligamentous and capsular structures on the talus and then with the ankle in maximum dorsiflexion and eversion, the suture was tied repairing the ligament. The 2 arms of the internal brace suture were then passed through the 3.5 mm anchor which was then aligned with the drill hole lateral malleolus. Utilizing described tensioning techniques, the anchor and suture were inserted into the drill hole and then the anchor advanced to lock the suture in place. At that time the ankle was tested for stability where anterior drawer and inversion stress were both negative. The wound was again irrigated with antibiotic saline. All Vicryl was used to close the periosteal flap and retinaculum over the repair site in a pants over vest fashion. The suture was tied while holding the ankle maximally dorsiflexed and everted Subcu closure was done with 4-0 Monocryl and skin closure done with 3-0 Stratafix in a running subcuticular manner. Dermal glue was applied across the incision and allowed to dry. Steri-Strips are placed across incision. The incision was covered with an Arthrex jumpstart dressing and then a bulky dry dressing. The tourniquet was released and capillary refill return to all digits on the right foot. The patient was then placed a below-knee fracture boot ho lding the ankle neutral position. Anesthesia was reversed and the patient was taken recovery with vital signs stable.
[2021-06-15 11:46] VITALS: BP 120/76; PULSE 94
--- NOTE | 2021-06-22 10:41 | P.PN ---
Progress Note - Text Progress Note Date: 06/20/21 Anesthesia Follow-up phone call and visit Patient called to ask questions of a persistent sore throat and what he felt was damage to his uvula. He felt his uvula was lengthened and causing him to cough/choke. I spoke with him for about 5 minutes and answered all questions. I invited him to come into preop so I could take a quick look at his throat if he would like. In the early afternoon, Mr. Fountain came to [place] 01/12 in preop. After a quick conversation, I examined his throat. No visible trauma was seen. All pharyngeal structures did look erythematous, almost infectious. I asked the patient if he has recently had a covid test and recommended he get one. I explained that I did not see any trauma and I would recommend testing and frequent salt water gargles. I recommended if still having discomfort or questions by friday to call a local ENT or call the anesthesia department. He stated that he has an established relationship with Dr. Tavares and will followup with him.
== END 2021-06-15 12:36 | disposition home or self-care (01) ==
LOC: OR 07:48
PROVIDERS: ATTEND Podiatrist
DX: S93.491A Sprain of other ligament of right ankle, initial encounter (principal); S93.411A Sprain of calcaneofibular ligament of right ankle, initial encounter; M24.071 Loose body in right ankle; M93.271 Osteochondritis dissecans, right ankle and joints of right foot; T14.90XA Injury, unspecified, initial encounter; Y93.67 Activity, basketball; G47.30 Sleep apnea, unspecified; Z98.890 Other specified postprocedural states; Z86.16 Personal history of COVID-19; Z79.899 Other long term (current) drug therapy
CPT/HCPCS: 64447; 64445; 76942; 27698; 27620; C1713 ×2; J2250; J0330; J1100; J0690; J2405; J2001; J3010; J2795; J2370; J2704

== ENCOUNTER → 2022-04-17 | Outpatient (CLI) | payer OTHER ==
--- NOTE | 2022-04-18 04:43 | MR ---
EXAMINATION TYPE: MR wrist RT wo con DATE OF EXAM: 04/17/2022 COMPARISON: None HISTORY: RADIAL STYLOID TENOSYNOVITIS Multiplanar multiecho imaging of the right wrist performed with no contrast. Collateral ligaments appear intact. No fracture seen of the distal radius and ulna. There is a mild w rist joint effusion with increased joint fluid. There is abnormal decreased signal in the posterior l unate bone on the T1 images. There is also a thin line of fluid signal in the proximal lunate. The na vicular appears intact. No evidence of a soft tissue mass. The triangular cartilage appears intact. F lexor and extensor tendons of the wrist appear intact. IMPRESSION: Abnormal decreased signal in the lunate that could relate to avascular necrosis in the posterior aspe ct. Severe bone bruise also possible. Hairline fracture also possible. Wrist joint effusion. Mild soft tissue edema around the carpus.
== END | disposition home or self-care (01) ==
LOC: RADMRIMAIN 09:20
PROVIDERS: ATTEND Orthopaedic Surgery Hand Surgery
DX: S63.8X1D Sprain of other part of right wrist and hand, subsequent encounter (principal); M65.4 Radial styloid tenosynovitis [de Quervain]; M19.031 Primary osteoarthritis, right wrist; M25.431 Effusion, right wrist; R60.0 Localized edema

== ENCOUNTER → 2022-05-02 | Outpatient (CLI) | payer OTHER ==
--- NOTE | 2022-05-02 09:38 | US ---
EXAMINATION TYPE: US gallbladder DATE OF EXAM: 05/02/2022 COMPARISON: NONE CLINICAL HISTORY: K82.4 CHOLESTEROLOSIS OF GALLBLADDER. dry heaves. limited due to body habitus. TECHNIQUE: Multiple sonographic images of the right upper quadrant are obtained. FINDINGS: EXAM MEASUREMENTS: Liver Length: 18.6 cm Gallbladder Wall: .3 cm CBD: .6 cm Right Kidney: 9.2 x 4.3 x 4.7 cm [employer]YWALL [employer]ER NOTES: Pancreas: Obscured by bowel gas Liver: Increased attenuation compatible with mild to moderate fatty infiltration of the liver. Gallbladder: No stones seen Evidence for sonographic Hendrickson's sign: No CBD: wnl Right Kidney: No hydronephrosis or masses seen IMPRESSION: 1. Mild to moderate fatty infiltration of the liver and hepatomegaly
== END | disposition home or self-care (01) ==
LOC: RADUSWWP 08:56
PROVIDERS: ATTEND Family Medicine
DX: K76.0 Fatty (change of) liver, not elsewhere classified (principal); K82.4 Cholesterolosis of gallbladder; R16.0 Hepatomegaly, not elsewhere classified
CPT/HCPCS: 76705

== ENCOUNTER → 2022-08-05 | Outpatient (CLI) | payer OTHER ==
--- NOTE | 2022-08-05 08:18 | MR ---
EXAMINATION TYPE: MR lumbar spine wo con DATE OF EXAM: 08/05/2022 COMPARISON: NONE HISTORY: Low back pain into rt hip and leg causing numbness for 2 months TECHNIQUE: Multiplanar, multisequence imaging of the lumbar spine is performed without IV contrast. FINDINGS: Sagittal images of the lumbar spine show vertebral body height to appear satisfactory. Grad e 1 retrolisthesis L4 on L5. Disc desiccation L4-L5 level otherwise discs show normal height and hydr ation. The conus medullaris is normal in position and signal ending at T12-L1 disc space level. The bone marrow signal intensity is within normal limits. Axial images show. T12-L1 through the L3-L4 levels to appear within normal limits. Axial images L4-L5 level shows spondylosis with focal central disc herniation having slight inferior extrusion sagittal image 10 but the spinal canal is preserved due to increased epidural fat beginning near this level. Mild facet arthropathy and ligamentum flavum hypertrophy effaces the bilateral late ral thecal sac. Patent bilateral neural foramina. Axial images at L5-S1 level show mild facet arthropathy bilaterally. Spinal canal is preserved. Bilat eral neural foramina are patent. IMPRESSION: Spondylolisthesis and degenerative change at L4-L5 level as detailed above. No eccentric disc herniation is seen to account for patient's right-sided radiculopathy type symptoms however.
== END | disposition home or self-care (01) ==
LOC: RADMRIMAIN 06:50
PROVIDERS: ATTEND Physical Medicine & Rehabilitation
DX: M47.816 Spondylosis without myelopathy or radiculopathy, lumbar region (principal); M16.11 Unilateral primary osteoarthritis, right hip; M43.16 Spondylolisthesis, lumbar region
CPT/HCPCS: 72148

== ENCOUNTER → 2022-08-06 | Outpatient (CLI) | payer OTHER | LOC: CPPFTMAIN 09:18 | PROVIDERS: ATTEND Family Medicine | DX: U09.9 Post COVID-19 condition, unspecified (principal) | CPT/HCPCS: 94060; 94726; 94729 ==

== ENCOUNTER 2022-08-13 12:14 | Emergency (ER) | payer OTHER ==
[2022-08-13 12:33] VITALS: TEMP 98.2
[2022-08-13] MEDS ORDERED: KETOROLAC 15 MG/ML 1 ML VIAL IVP STA (13:06)
[2022-08-13 13:20] LABS: Basophils % (A) 1 %; Eosinophils # (A) 0.2 k/uL (0-0.7); Eosinophils % (A) 2 %; HCT 45.2 % (39.0-53.0); HGB 15.3 gm/dL (13.0-17.5); Lymphocytes # (A) 2.1 k/uL (1.0-4.8); Lymphocytes % (A) 25 %; MCH 30.1 pg (25.0-35.0); MCHC 33.9 g/dL (31.0-37.0); MCV 88.6 fL (80.0-100.0); Mean Platelet Volume 7.8; Monocytes # (A) 0.5 k/uL (0-1.0); Monocytes % (A) 6 %; Neutrophils # (A) 5.5 k/uL (1.3-7.7); Neutrophils % (A) 65 %; Platelet Count 270 k/uL (150-450); RBC 5.09 m/uL (4.30-5.90); RDW 13.8 % (11.5-15.5); WBC 8.5 k/uL (3.8-10.6)
[2022-08-13 13:35] LABS: INR 0.9 (<1.2); Partial Thromboplastin Time 24.6 sec (22.0-30.0)
--- NOTE | 2022-08-13 13:43 | XR ---
EXAMINATION TYPE: XR chest 2V DATE OF EXAM: 08/13/2022 1:31 PM COMPARISON: Chest radiographs from 02/23/2021. TECHNIQUE: XR chest 2V Frontal and lateral views of the chest. CLINICAL INDICATION:Male, 41 years old with history of Chest Pain; FINDINGS: Lungs/Pleura: There is no evidence of pleural effusion, focal consolidation, or pneumothorax. Pulmonary vascularity: Unremarkable. Heart/mediastinum: Cardiomediastinal silhouette is unremarkable. Musculoskeletal: No acute osseous pathology. IMPRESSION: No acute cardiopulmonary disease/process. No significant change from 02/23/2021.
--- NOTE | 2022-08-13 13:51 | ED ---
General Adult HPI - General Chief complaint: Chest Pain Stated complaint: Chest Pain Time Seen by Provider: 08/13/22 12:54 Source: patient, RN notes reviewed, old records reviewed Mode of arrival: ambulatory Limitations: no limitations - History of Present Illness Initial comments: Patient is a 41-year-old male with past medical history remarkable for lung disease from prior Covid, recent influenza infection, who presents emergency Department complaining of chest pain. Describes a dull pain over the left side of the chest. Also some intermittent chest tightness worse with deep inspiration. Symptoms have been ongoing for the last 1-2 weeks. Denies any abdominal pain, nausea, vomiting. Denies any diarrhea. Endorses a mild productive cough which has been ongoing. Is seeing pulmonology outpatient for lung evaluation. Describes the pain as a dull sensation that comes and goes with no known palliative or provocative factors. Currently does not have the pain. Also has a separate pain which is worse with deep inspiration but seems pleuritic and tightness across his entire chest with no focal area. Denies sore throat. States last night after baseball practice he also notices heart rate was fast at 130 bpm. He delayed being evaluated when sinus PCP today who instructed him to come here for further evaluation. No lower extremity edema. No orthopnea. Denies history of blood clots. - Related Data Home Medications Medication Instructions Recorded Confirmed Albuterol Inhaler [Ventolin Hfa 2 puff INHALATION RT-Q4H PRN 02/23/21 08/13/22 Inhaler] Ibuprofen [Motrin] 800 mg PO Q8H PRN 08/13/22 08/13/22 Allergies Allergy/AdvReac Type Severity Reaction Status Date / Time No Known Allergies Allergy Verified 08/13/22 13:07 Review of Systems ROS Statement: Those systems with pertinent positive or pertinent negative responses have been documented in the HPI. Review of Systems: CONST: Denies fever EYES: Denies blurry vision ENT: Denies nasal congestion C/V: Endorses chest pain RESP: Denies shortness of breath GI: Denies abdominal pain : Denies dysuria SKIN: Denies rash. MSK: Denies joint pain. NEURO: Denies headache ROS Other: All systems not noted in ROS Statement are negative. Past Medical History Past Medical History: Pneumonia, Sleep Apnea/CPAP/BIPAP Additional Past Medical History / Comment(s): nausea, "dry heaves" History of Any Multi-Drug Resistant Organisms: None Reported Past Surgical History: Orthopedic Surgery Additional Past Surgical History / Comment(s): left wrist sx with screw, now removed, rt ankle Past Anesthesia/Blood Transfusion Reactions: No Reported Reaction Past Psychological History: No Psychological Hx Reported Smoking Status: Never smoker Past Alcohol Use History: None Reported Past Drug Use History: None Reported General Exam - General Exam Comments Initial Comments: General: Appears in no acute distress. HEAD: Normal with no signs of head trauma. EYES: PERRLA, EOMI, conjunctiva normal, no discharge. ENT: Hearing grossly intact, normal oropharynx. RESPIRATORY: Clear breath sounds bilaterally. No wheezes, rales, or rhonchi. No respiratory distress. Mild hypoxia but consistently usually around 95%. Occasionally 93%. C/V: Regular rate and rhythm. S1 and S2 auscultated, no edema, peripheral pulses 2+ and intact throughout. No chest pain on palpation. ABD: Abd is soft, nontender, nondistended EXT: Normal range of motion, no obvious deformity SKIN: No rashes or lesions observed on exposed skin. NEURO: Alert and oriented 4. 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 sent in by a medical professional or institution (, PA, DRAFTING TECHNICIAN, urgent care, hospital, or prison...) When possible be specific @ -Sent in by Dr. Doss, his PCP. Did you speak to anyone other than the patient for history (EMS, parent, family, police, friend...)? What history was obtained from this source @ -No Did you review nursing and triage notes (agree or disagree)? Why? @ -I reviewed and agree with nursing and triage notes Were old charts reviewed (outside hosp., previous admission, EMS record, old EKG, old radiological studies, urgent care reports/EKG's, prison records)? Report findings @ -EKG reviewed from February 2021. Differential Diagnosis (chest pain, altered mental status, abdominal pain women, abdominal pain men, vaginal bleeding, weakness, fever, dyspnea, syncope, headache, dizziness, GI bleed, back pain, seizure, CVA, palpatations, mental health, musculoskeletal)? @ -Differential Chest Pain: Stable Angina, Unstable Angina, STEMI, NSTEMI Aortic Dissection, Pneumothorax, Musculoskeletal, Esophageal Spasm GERD, Cholecystitis, Pancreatitis, Zoster, this is not meant to be an all-inclusive list. EKG interpreted by me (3pts min.). @ -As above X-rays interpreted by me (1pt min.). @ -Chest x-ray shows no obvious acute cardio pulmonary process. CT interpreted by me (1pt min.). @ -None done U/S interpreted by me (1pt. min.). @ -None done What testing was considered but not performed or refused? (CT, X-rays, U/S, labs)? Why? @ -None What meds were considered but not given or refused? Why? @ -None Did you discuss the management of the patient with other professionals (professionals i.e. , PA, DRAFTING TECHNICIAN, lab, RT, psych nurse, executive secretary social welfare, envelope addresser, teacher, minesweeping officer, catalytic case operator)? Give summary @ -No Was smoking cessation discussed for >3mins.? @ -No Was critical care preformed (if so, how long)? @ -No Were there social determinants of health that impacted care today? How? (Homelessness, low income, unemployed, alcoholism, drug addiction, transportation, low edu. Level, literacy, decrease access to med. care, fdc, rehab)? @ -No Was there de-escalation of care discussed even if they declined (Discuss DNR or withdrawal of care, Hospice)? DNR status @ -No What co-morbidities impacted this encounter? (DM, HTN, Smoking, COPD, CAD, Cancer, CVA, ARF, Chemo, Hep., AIDS, mental health diagnosis, sleep apnea, morbid obesity)? @ -no Was patient admitted / discharged? Hospital course, mention meds given and route, prescriptions, significant lab abnormalities, going to OR and other pertinent info. @ -Based on the patient's presentation and physical exam, I'm concerned for cardiopulmonary etiology for his current symptoms. We'll obtain cardiopulmonary labs including EKG, troponin, chest x-ray, basic labs. Screening d-dimer also be obtained. Vital signs within acceptable limits. Patient's PCP already administered the patient 324 millions of aspirin. Vital signs within acceptable limits. He was in agreement this plan. EKG showed no signs of acute ischemia. Chest x-ray was unremarkable. Patient's laboratory studies are remarkable for a normal d-dimer. Troponin is undetectable. BNP within normal limits. Remainder the workup is unremarkable. On reevaluation, patient remains symptomatic. We did discuss his workup. I believe it is safe for him to be discharged home at this time. Patient's heart score is low at 1-2. He was in agreement with this plan. Strict return precautions discussed. Recommended he follow up with his PCP as well as his pulmonary function testing. I instructed the patient to follow up with their PCP in the next 1-3 days. I explained that the patient should return to the emergency department if they experience any worsening symptoms. Strict return precautions were discussed with the patient. The patient expressed understanding of these instructions. I answered all questions that the patient had. The patient was discharged home in good condition with their prescriptions and follow up information. Undiagnosed new problem with uncertain prognosis? @ -No Drug Therapy requiring intensive monitoring for toxicity (Heparin, Nitro, Insulin, Cardizem)? @ -No Were any procedures done? @ -No Diagnosis/symptom? @ -Atypical chest pain Acute, or Chronic, or Acute on Chronic? @ -Acute on chronic Uncomplicated (without systemic symptoms) or Complicated (systemic symptoms)? @ -Uncomplicated Side effects of treatment? @ -none Exacerbation, Progression, or Severe Exacerbation] @ -no Poses a threat to life or bodily function? @ -no - Lab Data Result diagrams: 08/13/22 13:06 08/13/22 13:06 Lab Results 08/13/22 08/13/22 08/13/22 Range/Units 13:06 13:06 13:06 WBC 8.5 (3.8-10.6) k/uL RBC 5.09 (4.30-5.90) m/uL Hgb 15.3 (13.0-17.5) gm/dL Hct 45.2 (39.0-53.0) % MCV 88.6 (80.0-100.0) fL MCH 30.1 (25.0-35.0) pg MCHC 33.9 (31.0-37.0) g/dL RDW 13.8 (11.5-15.5) % Plt Count 270 (150-450) k/uL MPV 7.8 Neutrophils % 65 % Lymphocytes % 25 % Monocytes % 6 % Eosinophils % 2 % Basophils % 1 % Neutrophils # 5.5 (1.3-7.7) k/uL Lymphocytes # 2.1 (1.0-4.8) k/uL Monocytes # 0.5 (0-1.0) k/uL Eosinophils # 0.2 (0-0.7) k/uL Basophils # 0.0 (0-0.2) k/uL PT 10.0 (9.0-12.0) sec INR 0.9 (<1.2) APTT 24.6 (22.0-30.0) sec D-Dimer 0.27 (<0.60) mg/L FEU Sodium 140 (137-145) mmol/L Potassium 4.1 (3.5-5.1) mmol/L Chloride 107 (98-107) mmol/L Carbon Dioxide 26 (22-30) mmol/L Anion Gap 7 mmol/L BUN 17 (9-20) mg/dL Creatinine 1.05 (0.66-1.25) mg/dL Est GFR (CKD-EPI)AfAm >90 (>60 ml/min/1.73 sqM) Est GFR (CKD-EPI)NonAf 88 (>60 ml/min/1.73 sqM) Glucose 111 H (74-99) mg/dL Calcium 9.7 (8.4-10.2) mg/dL Magnesium 2.1 (1.6-2.3) mg/dL Total Bilirubin 0.4 (0.2-1.3) mg/dL AST 31 (17-59) U/L ALT 50 H (4-49) U/L Alkaline Phosphatase 70 (38-126) U/L Troponin I (0.000-0.034) ng/mL NT-Pro-B Natriuret Pep pg/mL Total Protein 7.6 (6.3-8.2) g/dL Albumin 4.6 (3.5-5.0) g/dL 08/13/22 08/13/22 Range/Units 13:06 13:06 WBC (3.8-10.6) k/uL RBC (4.30-5.90) m/uL Hgb (13.0-17.5) gm/dL Hct (39.0-53.0) % MCV (80.0-100.0) fL MCH (25.0-35.0) pg MCHC (31.0-37.0) g/dL RDW (11.5-15.5) % Plt Count (150-450) k/uL MPV Neutrophils % % Lymphocytes % % Monocytes % % Eosinophils % % Basophils % % Neutrophils # (1.3-7.7) k/uL Lymphocytes # (1.0-4.8) k/uL Monocytes # (0-1.0) k/uL Eosinophils # (0-0.7) k/uL Basophils # (0-0.2) k/uL PT (9.0-12.0) sec INR (<1.2) APTT (22.0-30.0) sec D-Dimer (<0.60) mg/L FEU Sodium (137-145) mmol/L Potassium (3.5-5.1) mmol/L Chloride (98-107) mmol/L Carbon Dioxide (22-30) mmol/L Anion Gap mmol/L BUN (9-20) mg/dL Creatinine (0.66-1.25) mg/dL Est GFR (CKD-EPI)AfAm (>60 ml/min/1.73 sqM) Est GFR (CKD-EPI)NonAf (>60 ml/min/1.73 sqM) Glucose (74-99) mg/dL Calcium (8.4-10.2) mg/dL Magnesium (1.6-2.3) mg/dL Total Bilirubin (0.2-1.3) mg/dL AST (17-59) U/L ALT (4-49) U/L Alkaline Phosphatase (38-126) U/L Troponin I <0.012 (0.000-0.034) ng/mL NT-Pro-B Natriuret Pep <11 pg/mL Total Protein (6.3-8.2) g/dL Albumin (3.5-5.0) g/dL - EKG Data -: EKG Interpreted by Me EKG Comments: 12-lead Electrocardiogram Interpretation Note EKG was reviewed and interpreted by myself. 12-lead ECG performed at 1237 is int erpreted by me as revealing normal sinus rhythm at a rate of 82 beats per minute. Larsen is normal. FL interval is 172 ms, QRS duration is 102 ms, QTc is 410 ms.. There were no ST or T wave abnormalities to suggest myocardial ischemia or injury. R wave progression across the precordium was satisfactory. By my interpretation this EKG is non-diagnostic for acute ischemia. When compared with EKG from February 2021, no significant change. Disposition Clinical Impression: Atypical chest pain Disposition: HOME SELF-CARE Condition: Good Instructions (If sedation given, give patient instructions): Chest Pain (ED) Is patient prescribed a controlled substance at d/c from ED?: No Referrals: Shawn Doss MD [Primary Care Provider] - 1-2 days Time of Disposition: 14:40
[2022-08-13 13:53] LABS: ALT 50 U/L (4-49); AST 31 U/L (17-59); African American GFR (CKD) >90 (>60 ml/min/1.73 sqM); Albumin 4.6 g/dL (3.5-5.0); Alkaline Phosphatase 70 U/L (38-126); Anion Gap 7 mmol/L; Blood Urea Nitrogen 17 mg/dL (9-20); Calcium 9.7 mg/dL (8.4-10.2); Carbon Dioxide 26 mmol/L (22-30); Chloride 107 mmol/L (98-107); Glucose 111 mg/dL (74-99); Magnesium 2.1 mg/dL (1.6-2.3); Non-African American GFR(CKD) 88 (>60 ml/min/1.73 sqM); Potassium 4.1 mmol/L (3.5-5.1); Sodium 140 mmol/L (137-145); Total Bilirubin 0.4 mg/dL (0.2-1.3); Total Protein 7.6 g/dL (6.3-8.2)
[2022-08-13 13:54] VITALS: RESP 16
[2022-08-13 15:00] VITALS: BP 148/85; PULSE 68
== END 2022-08-13 14:59 | disposition home or self-care (01) ==
LOC: EC 12:14
DX: R07.89 Other chest pain (principal)
CPT/HCPCS: 36415; 93005; 85379; 83880; 80053; 83735; 84484; 85025; 85610; 85730; 71046; 99285; 96374; J1885

== ENCOUNTER → 2023-04-08 | Outpatient (CLI) | payer OTHER ==
--- NOTE | 2023-04-09 05:22 | MR ---
EXAMINATION TYPE: MR knee RT wo con DATE OF EXAM: 04/08/2023 COMPARISON: NONE HISTORY: Rt knee medial pain for 5 months after baseball twisting injury TECHNIQUE: Multiplanar, multisequence images of the knee is performed without IV contrast. FINDINGS: MEDIAL MENISCUS: Triangular shaped increased signal posterior horn does not definitively extend to ar ticular surface. LATERAL MENISCUS: Anterior and posterior horns are intact without tear. CRUCIATE LIGAMENTS: The anterior and posterior cruciate ligaments are intact and unremarkable. COLLATERAL LIGAMENTS: The medial collateral ligament and lateral collateral ligament complex are inta ct and unremarkable. EXTENSOR MECHANISM: Visualized quadriceps and patellar tendons are intact. EFFUSION: No significant suprapatellar joint effusion. POPLITEAL CYST: No popliteal/perrin cyst. TRICOMPARTMENT SPACES: Mild to moderate tricompartment joint space loss and spurring. CARTILAGE: Tricompartmental articular cartilage is preserved. BONE MARROW SIGNAL: No focal abnormal marrow signal is appreciated. OTHER: No additional significant abnormality is appreciated. IMPRESSION: 1. Intrasubstance tear posterior horn medial meniscus. No full-thickness meniscal or ligamentous tear is seen. 2. Mild to moderate tricompartment degenerative changes are present as detailed above.
== END | disposition home or self-care (01) ==
LOC: RADMRIMAIN 07:43
PROVIDERS: ATTEND Orthopaedic Surgery Sports Medicine
DX: S83.241A Other tear of medial meniscus, current injury, right knee, initial encounter (principal); M17.11 Unilateral primary osteoarthritis, right knee

== ENCOUNTER → 2024-09-21 | Outpatient (CLI) | payer OTHER ==
--- NOTE | 2024-09-21 11:53 | US ---
EXAMINATION TYPE: US thyroid st tissue head/neck DATE OF EXAM: 09/21/2024 COMPARISON: NONE CLINICAL INDICATION: Male, 43 years old with history of K11.20 SIALOADENITIS; Right swollen parotid g land recently, along with left facial palpable TECHNIQUE: Soft tissue palpable FINDINGS: Right parotid has multiple lesions, measured largest 2, Hypoechoic lesion = 2.8 x 2.4 x 2. 2cm and cystic area = 1.5 x 1.7 x 0.8cm Left facial palpable within hairline, noticed for a while. Multiple cystic areas seen, largest = 1.2 x 1.4 x 0.8cm IMPRESSION: 1. Suspicious 2.8 cm hypoechoic mass in the superior aspect right parotid gland with incidental 1.7 c m thin-walled cyst superficially. Solid mass or neoplasm not excluded. Advise ENT referral to further evaluate. 2. Subcutaneous small thin-walled cysts left facial region of uncertain etiology but favor benign pro cess. Advise repeat imaging if area is felt to enlarge or become painful. [facility], , 09/21/2024 11:50 AM
== END | disposition home or self-care (01) ==
LOC: RADUSWWP 10:43
PROVIDERS: ATTEND Family Medicine
DX: K11.20 Sialoadenitis, unspecified (principal); E04.1 Nontoxic single thyroid nodule
CPT/HCPCS: 76536